=== PATIENT | male | born 1965 | race Caucasian/White ===

== ENCOUNTER 2017-11-04 16:00 | Outpatient (RCR) | payer OTHER | END 2017-11-14 | LOC: PT 16:00 | PROVIDERS: ATTEND Neurological Surgery | DX: M50.120 Mid-cervical disc disorder, unspecified level (principal); M54.2 Cervicalgia; M53.82 Other specified dorsopathies, cervical region; R53.1 Weakness ==

== ENCOUNTER 2017-11-19 16:09 | Outpatient (RCR) | payer OTHER | END 2017-12-14 | LOC: PT 16:09 | PROVIDERS: ATTEND Neurological Surgery | DX: M50.120 Mid-cervical disc disorder, unspecified level (principal); M54.2 Cervicalgia; M53.82 Other specified dorsopathies, cervical region; R53.1 Weakness ==